=== PATIENT | female | born 1990 | race Caucasian/White ===

== ENCOUNTER 2016-09-13 14:13 | Outpatient (CLI) | payer OTHER, MEDICAID ==
[~2016-09-13] VITALS: Ht 167.6 cm; Wt 135.7 kg
--- NOTE | ~2016-09-13 | DS ---
PATIENT'S NAME: MADELYN MONTEMAYOR [facility] AGE: 26 Y [address] ROOM: [place] [address] LOCATION: GOBS ADMIT DATE: 09/13/2016 Discharge Summary DISCHARGE DATE: 09/13/2016 FAMILY PHYSICIAN: Lissett Greene PA-C ATTENDING PHYSICIAN: Helen Bryant HPI AND HOSPITAL COURSE: This is a 26-year-old 2, para 1, who presents at 35 weeks 5 days' gestation. She sees Dr. Delacruz. She called on the phone crying saying she is in labor. Upon admission to Labor and Delivery, her cervix is closed, high, -3 to -4 station, 50%, and posterior. heart tones are reactive and reassuring. Gould shows no contractions. Her abdomen is soft, I wonder if baby is breech. UA really is just kind of junky looking, but may be showing UTI. PLAN: We will send her home with Macrobid 1 p.o. b.i.d. that I called into [facility]. She wants pain medicines, but I told her we will just only give her Tylenol since there is no evidence of labor, and she will follow up with Dr. Delacruz on Wednesday. MD LISETH MANCIA/ray /[id number] d: 09/14/16 0345 t: 09/15/16 1136, DISCHARGE SUMMARY
[2016-09-13 15:34] LABS: BILIRUBIN URINE NEGATIVE (NEGATIVE); BLOOD URINE 250 /UL (NEGATIVE); COLOR URINE YELLOW (YELLOW); GLUCOSE URINE NEGATIVE (NEGATIVE); KETONE URINE 5 mg/dL (NEGATIVE); LEUKOCYTES URINE 25 /UL (NEGATIVE); NITRITE URINE NEGATIVE (NEGATIVE); PROTEIN URINE 30 mg/dL (NEGATIVE); SPEC GRAVITY URINE 1.025 (1.003-1.035); TURBIDITY URINE 3+ (CLEAR); UROBILINOGEN URINE 1 mg/dL (NORMAL)
[2016-09-13] MEDS ORDERED: PROTONIX20 MG PO (15:43)
[2016-09-13 15:45] LABS: AMORPHOUS URINE 1+ (NEGATIVE); BACTERIA URINE RARE (NEGATIVE); CRYSTALS URINE CALCIUM OXALATE (NEGATIVE); MUCUS URINE 1+ (NEGATIVE); RBC URINE 20-50 #/HPF (NEGATIVE)
== END 2016-09-13 16:58 | disposition disaster alternative care site (69) ==
LOC: GOBS 14:13 → GOBM 14:13
PROVIDERS: Obstetrics & Gynecology
DX: O47.03 False labor before 37 completed weeks of gestation, third trimester (principal); Z3A.35 35 weeks gestation of pregnancy
CPT/HCPCS: G0463

== ENCOUNTER 2016-10-07 06:06 | Outpatient (CLI) | payer OTHER, MEDICAID ==
[~2016-10-07] VITALS: Ht 167.6 cm; Wt 136.4 kg
[~2016-10-07 06:06] MED LIST: PROTONIX20 MG PO
[2016-10-07] MEDS ORDERED: ACETAMINOPHEN325 MG PO (06:46)
[2016-10-07] MEDS ORDERED: VALTREX (NON-F500 MG PO (06:50)
[2016-10-07 07:24] LABS: BASOPHIL # 0.1 K/uL (0.0-0.2); BASOPHIL % 0.4 %; EOSINOPHIL # 0.5 K/uL (0.0-0.5); EOSINOPHIL % 3.6 %; HEMATOCRIT 37.1 % (33.0-46.0); HEMOGLOBIN 12.5 g/dL (11.0-15.0); IMMATURE GRANULOCYTE # 0.2 K/uL (0.0-0.3); IMMATURE GRANULOCYTE % 1.4 %; LYMPHOCYTE # 2.5 K/uL (0.8-4.0); LYMPHOCYTE % 18.2 %; MCHC 33.7 gm/dL (32.0-36.5); MCV 89.2 fl (83.0-98.0); MONOCYTE # 0.9 K/uL (0.0-1.0); MONOCYTE % 6.2 %; MPV 10.1 fl (9.4-12.4); NEUTROPHIL # (ANC) 9.7 K/uL (1.8-7.8); NEUTROPHIL % 70.2 %; NRBC % 0 /100WBC (0-0.00); PLATELET COUNT 241 K/uL (150-450); RBC 4.16 M/uL (3.50-5.00); RDW-CV 14.5 % (11.9-14.6); WBC 13.8 K/uL (4.0-11.0)
--- NOTE | 2016-10-07 17:10 | NUR ---
Last VS: T:98.2 P:102 R: 16 BP: 124/62 Pain ratin. Last pain med: None given Medicated at: Effective: Yes FHT:130 Dilatation: 1-2 Effacement %: thick Station: high/posterior Significant event: *.Pitocin started this a.m. and increased to 21Mu at 1330. remains at 21. 1st bag LR hanging. 4th dose Pen G due at 1900. VSS. Up in halls at times.
== END 2016-10-07 21:25 | disposition disaster alternative care site (69) ==
LOC: GOBS 06:06 → GOBM 06:06
PROVIDERS: Obstetrics & Gynecology
DX: O98.313 Other infections with a predominantly sexual mode of transmission complicating pregnancy, third trimester (principal)
CPT/HCPCS: G0463; J2540; J2590; J7120

== ENCOUNTER 2016-10-14 06:11 | Inpatient (IN) | payer OTHER, MEDICAID ==
[~2016-10-14] VITALS: Ht 167.6 cm; Wt 135.7 kg
--- NOTE | ~2016-10-14 | OR ---
PATIENT'S NAME: MADELYN MONTEMAYOR [facility] AGE: 26 Y [address] ROOM: [place] [address] LOCATION: GOBS ADMIT DATE: 10/14/2016 OR/Procedure Report DISCHARGE DATE: FAMILY PHYSICIAN: Lissett Greene PA-C ATTENDING PHYSICIAN: Danika Delcaruz SURGEON: Danika Delacruz MD SLATE TRIMMER: DATE OF PROCEDURE: 10/14/2016 PREOPERATIVE DIAGNOSES: 1. Intrauterine at 40 weeks and 1 day. 2. Failed induction of labor x2. 3. Morbid obesity. POSTOPERATIVE DIAGNOSES: 1. Intrauterine at 40 weeks and 1 day. 2. Failed induction of labor x2. 3. Morbid obesity. 4. Right ovarian cyst. ASSISTANCE SURGEON: Lazaro London MD. Dr. London was necessary for adequate visualization of tissues and delivery of the fetus. ANESTHESIA: Spinal. ESTIMATED BLOOD LOSS: 600 mL. FINDINGS: Male , score 8 and 9. Weight 6 pounds 12 ounces. Intact placenta. Three-vessel cord. Normal uterus and tubes. Normal left ovary. Right ovary with what appeared to be a dermoid cyst which had two areas one about 3 x 4 cm and one 3 x 2 cm. DRAINS: Bryant. SPECIMENS: Placenta and right ovarian cyst. COMPLICATIONS: None. INDICATIONS: This patient is a 26-year-old, G2, P1-0-0-1 female. She had an induction of labor last week where we did not make any progress. She was brought in today for another induction of labor. She received Cytotec followed by Pitocin. Her Pitocin got up to 21 milliunits despite the fact we could not get her to change her cervix at all and hardly getting very uncomfortable. We discussed the options and felt based on the fact that she had two failed induction of labor, the decision was made for section. PATIENT'S NAME: MADELYN MONTEMAYOR [facility] AGE: 26 Y [address] ROOM: [place] [address] LOCATION: GOBS ADMIT DATE: 10/14/2016 OR/Procedure Report DISCHARGE DATE: FAMILY PHYSICIAN: Lissett Greene PA-C ATTENDING PHYSICIAN: Danika Delacruz The patient did not want to attempt another induction. The risks, benefits, and alternatives to the procedure were discussed with the patient. She understood the risk to be, but not to be limited to, bleeding, infection, damage to the bowel, bladder, ureter, surrounding organs, and desired to proceed. DESCRIPTION OF PROCEDURE: The patient was taken to the operating room, where spinal anesthesia was found to be adequate. She was prepped and draped in dorsal supine position with leftward tilt. A Pfannenstiel skin incision was made. It was carried down through to the fascia. The fascia was incised across the midline. The fascial incision was extended. The rectus muscles were . The peritoneum was entered. The uterus was incised in a low- transverse fashion with the scalpel. The uterine incision was extended with vertical traction. Surgeon's hand was inserted into the uterus. The head delivered. The rest of fetus delivered. The nose and mouth were bulb suctioned. The cord was clamped and cut. The infant was handed to awaiting team. Cord blood was drawn. The placenta delivered with manual traction. There was noted to be some membranes that were adherent and they removed with Decker. I felt that all of the membranes were then removed and the uterus was closed in a running locked fashion with 0 Vicryl suture. Hemostasis was achieved with [id number] sutures. On the right side, there was noted to be the above described ovarian cyst, the cyst was incised with a knife and the cyst wall was then dissected out with an open Ray-Linette. The cyst was not ruptured, it was all removed. The base of the cyst wall was then reapproximated with 2-0 Vicryl suture until hemostasis was noted and then the incision was closed with 2-0 Vicryl suture. Hemostasis was noted. The uterus was then returned to the abdomen. The gutters were cleared of clots and debris. The uterus was again observed for hemostasis. Hemostasis was noted. The fascia was closed with looped Maxon in a running fashion from angle to midline. Subcutaneous adipose tissue was hemostatic. It was irrigated and was reapproximated with 2-0 Vicryl suture. The skin was closed with 4-0 Vicryl suture and a Prevena wound VAC was placed. COMPLICATIONS: None. CONDITION: Mom stable in room. to nursery. PATHOLOGY: Placenta and right ovarian cyst. MD JEFF PELAYO/ray PATIENT'S NAME: MADLEYN MONTEMAYOR [facility] AGE: 26 Y [address] ROOM: [place] [address] LOCATION: [facility] ADMIT DATE: 10/14/2016 OR/Procedure Report DISCHARGE DATE: FAMILY PHYSICIAN: Lissett Greene PA-C ATTENDING PHYSICIAN: Danika Delacruz /[id number] d: 10/15/16 1749 t: 10/16/16 0941, OPERATIVE SUMMARY
[~2016-10-14 06:11] MED LIST changes: +ACETAMINOPHEN325 MG PO; +VALTREX (NON-F500 MG PO
[2016-10-14 07:41] LABS: BASOPHIL # 0.1 K/uL (0.0-0.2); BASOPHIL % 0.5 %; EOSINOPHIL # 0.5 K/uL (0.0-0.5); EOSINOPHIL % 3.1 %; HEMATOCRIT 37.7 % (33.0-46.0); HEMOGLOBIN 12.8 g/dL (11.0-15.0); IMMATURE GRANULOCYTE # 0.2 K/uL (0.0-0.3); IMMATURE GRANULOCYTE % 1.2 %; LYMPHOCYTE # 2.7 K/uL (0.8-4.0); LYMPHOCYTE % 17.4 %; MCV 88.3 fl (83.0-98.0); MONOCYTE % 6.3 %; MPV 9.8 fl (9.4-12.4); NEUTROPHIL # (ANC) 10.9 K/uL (1.8-7.8); NEUTROPHIL % 71.5 %; NRBC % 0 /100WBC (0-0.00); PLATELET COUNT 234 K/uL (150-450); RBC 4.27 M/uL (3.50-5.00); RDW-CV 14.6 % (11.9-14.6); WBC 15.3 K/uL (4.0-11.0)
--- NOTE | 2016-10-14 17:25 | NUR ---
10/14/16 1725: Iv pump cleared. Iv Pitocin remains on 21 mu/min. Pt. comfortable and hungry. Was Cytotec'ed this am. Was 1.5-2, 50,high and posterior prior to Iv Pitocin started. Ltv moderate w/ fhr accels. Next Pen G due @ 1999. Has had 3 doses thus far. afebrile. Bp 107/44-150's/80's.
[2016-10-15 04:35] LABS: BASOPHIL # 0.1 K/uL (0.0-0.2); BASOPHIL % 0.4 %; EOSINOPHIL # 0.3 K/uL (0.0-0.5); EOSINOPHIL % 2.1 %; HEMATOCRIT 31.4 % (33.0-46.0); HEMOGLOBIN 10.5 g/dL (11.0-15.0); IMMATURE GRANULOCYTE # 0.1 K/uL (0.0-0.3); IMMATURE GRANULOCYTE % 0.9 %; LYMPHOCYTE # 3.1 K/uL (0.8-4.0); LYMPHOCYTE % 19.3 %; MCH 30.1 pg (27.0-34.0); MCHC 33.4 gm/dL (32.0-36.5); MONOCYTE # 1.1 K/uL (0.0-1.0); MONOCYTE % 6.6 %; MPV 10.2 fl (9.4-12.4); NEUTROPHIL # (ANC) 11.5 K/uL (1.8-7.8); NEUTROPHIL % 70.7 %; NRBC % 0 /100WBC (0-0.00); PLATELET COUNT 217 K/uL (150-450); RBC 3.49 M/uL (3.50-5.00); RDW-CV 14.6 % (11.9-14.6)
[2016-10-15 04:39] LABS: WBC 16.2 K/uL (4.0-11.0)
--- NOTE | 2016-10-15 13:44 | NUR ---
Met with patient and baby Imckey at bedside this morning. Introduced myself and my role with the CM department. Adri states that she has a 3 yo son Amari at home. FOCarolin is not involved at all. Her supports are her dad and close friends. She works at [employer] in [place] and has daycare for the boys. She is set up with [facility] already. She has all the necessary supplies for baby Mickey. I instructed her to contact Medicaid and notify them of baby's . We also discussed signs and symptoms of post depression. She did experience this with Amari so she states she is aware of what to watch for. Left her reading material to refer to. She is hoping to discharge tomorrow as she feels she is doing well. Will follow and offer supports as needed.
--- NOTE | 2016-10-16 05:14 | NUR ---
Last VS: T:98.3 P:84 R: 20 BP: 126/55 Pain ratin . Last pain med: Percocet Medicated at: 0120 Effective: R Lung sounds: , L Lung sounds: Fundus: firm and midline, , Lochia: small , Breasts: N/A , Nipples: N/A Incision: Low abdominal transverse , Incision appearance: Covered Incision closure: Wound Vac Bowel sounds: Active Passing flatus: Yes Voiding well: Yes Significant event: .Home Today
[2016-10-16] MEDS ORDERED: MOTRIN800 MG PO (13:04)
[2016-10-16] MEDS ORDERED: PERCOCET 5-3251 EACH PO (13:04)
== END 2016-10-16 16:10 | disposition disaster alternative care site (69) | DRG 766 ==
LOC: GOBM 06:11 → GOBS 06:11 → GOBM 06:12 → GOBS 06:12
PROVIDERS: ADMIT Obstetrics & Gynecology
DX: O99.824 Streptococcus B carrier state complicating childbirth (principal); E66.01 Morbid (severe) obesity due to excess calories; D27.0 Benign neoplasm of right ovary; O61.0 Failed medical induction of labor; O34.83 Maternal care for other abnormalities of pelvic organs, third trimester; O99.214 Obesity complicating childbirth; Z3A.40 40 weeks gestation of pregnancy; Z37.0 Single live birth; Z88.1 Allergy status to other antibiotic agents; Z88.5 Allergy status to narcotic agent
CPT/HCPCS: J0295; J1885; J2001; J2540; J2590; J7120